=== PATIENT | male | born 1940 | race African-American/Black ===

== ENCOUNTER 2019-04-20 11:10 | Emergency (ER) | payer OTHER, MEDICAID ==
[~2019-04-20] VITALS: Ht 167.6 cm; Wt 73.5 kg
[2019-04-20 11:10] VITALS: BP_SYST 141
--- NOTE | 2019-04-20 11:10 | NUR ---
BROUGHT IN BY [facility], PLACED IN BED #3 AND TRIAGED. REPORT GIVEN TO SAMUEL
--- NOTE | 2019-04-20 11:25 | NUR ---
Pt presents to ED via BLS from [facility] for evaluation s/p fall and possible seizure activity. Superficial laceration to R eyebrow. Pt states "I just bumped my head. I feel fine. It doesn't hurt." No active bleeding noted. Will continue to monitor.
--- NOTE | 2019-04-20 11:47 | NUR ---
ER Dr. Kilpatrick at bedside examining patient.
[2019-04-20] MEDS ORDERED: LORazepam 1 MG TABLET PO ONE (12:00)
[2019-04-20 12:13] LABS: BASOPHILS % (AUTO) 0.4 % (0.0-2.0); EOSINOPHILS % (AUTO) 0.1 % (0.0-4.0); HEMATOCRIT 34.7 % (36-54); HEMOGLOBIN 11.7 g/dL (14.0-18.0); LYMPHOCYTES % (AUTO) 8.7 % (20.5-51.5); MEAN CORPUSCULAR HEMOGLOBIN 28 pg (27-31); MEAN CORPUSCULAR HGB CONC 34 % (32-36); MEAN CORPUSCULAR VOLUME 83 fL (79.0-98.0); MONOCYTES # (AUTO) 0.5 K/uL (0.0-1.0); MONOCYTES % (AUTO) 4.4 % (1.7-9.3); NEUTROPHILS # (AUTO) 10.4 K/uL (1.8-7.7); NEUTROPHILS % (AUTO) 86.4 % (40.0-70.0); PLATELET COUNT (AUTO) 403 K/uL (130-430); RED BLOOD CELL COUNT(AUTO) 4.15 MIL/uL (4.2-6.2); RED CELL DISTRIBUTION WIDTH 14.3 % (9.0-15.0)
[2019-04-20 12:20] LABS: ANION GAP 7 (5-15); CALCIUM 8.3 mg/dL (8.4-11.0); CHLORIDE 95 mmol/L (98-107); CREATININE 1.21 mg/dL (0.55-1.30); GLUCOSE 142 mg/dL (70-99); POTASSIUM 4.3 mmol/L (3.5-5.1); SODIUM SERUM 127 mmol/L (136-145); UREA NITROGEN, BLOOD 25 mg/dL (8-21)
[2019-04-20 12:25] LABS: ALANINE AMINOTRANSFERASE 24 U/L (12-78); ALBUMIN 3.2 g/dL (3.4-4.8); ASPARTATE AMINOTRANSFERASE 21 U/L (10-37); TOTAL BILIRUBIN 0.3 mg/dL (0.0-1.0)
--- NOTE | 2019-04-20 12:30 | NUR ---
Pt refused to sit on [facility] for CT scan. Pt refused scan and states he wants water. Pt pacing back and forth from room to nursing station. PT informed he must stay in room. Dr. Kilpatrick escorted pt to room and evaluating lac to eyebrow.
[2019-04-20 13:27] VITALS: BP_SYST 133
--- NOTE | 2019-04-20 13:32 | NUR ---
Attempted to call [facility]. Unable to get staff on the phone.
--- NOTE | 2019-04-20 13:35 | NUR ---
Patient given written and verbal discharge instructions and verbalizes understanding. ER MD Kilpatrick discussed with patient the results and treatment provided. Patient in stable condition. Pt refused to take wristband off. No Rx given. Patient educated on pain management and to follow up with PMD. Pain Scale 0. Opportunity for questions provided and answered. Medication side effect fact sheet provided.
== END 2019-04-20 13:35 | disposition home or self-care (01) ==
LOC: SED 11:10
DX: S01.111A Laceration without foreign body of right eyelid and periocular area, initial encounter (principal); S09.90XA Unspecified injury of head, initial encounter; R56.9 Unspecified convulsions; I67.9 Cerebrovascular disease, unspecified; W18.39XA Other fall on same level, initial encounter; Y93.89 Activity, other specified; Y92.89 Other specified places as the place of occurrence of the external cause; Y99.8 Other external cause status
CPT/HCPCS: 36415; 80053; 85025; 99283